=== PATIENT | male | born 1980 | race Caucasian/White ===

== ENCOUNTER 2020-05-25 21:07 | Inpatient (IN) ==
[2020-05-25 21:59] LABS: ABS Basophils 0.1 10^3/ul (0-0.2); ABS Eosinophils 0.2 10^3/ul (0-0.6); ABS Lymphocytes 2.5 10^3/ul (1.0-4.8); ABS Monocytes 0.3 10^3/ul (0-0.8); ABS Neutrophils 4.2 10^3/ul (1.5-7.7); Eosinophil % 2.2 %; Hematocrit 40 % (42-52); Hemoglobin 14.3 g/dL (14.0-18.0); Lymphocyte % 34.7 %; Mean Corpuscular HGB Conc 36 g/dL (31-36); Mean Corpuscular Hemoglobin 28 pg (27-31); Mean Corpuscular Volume 78 fL (80-94); Mean Platelet Volume 8.2 fL (7.4-10.4); Platelet Count 357 10^3/uL (150-450); Red Blood Count 5.11 10^6 /uL (4.18-5.48); Red Cell Distribution Width 13 % (10-15); White Blood Count 7.2 10^3/uL (3.5-10.8)
[2020-05-25 22:09] LABS: ALT 16 U/L (7-52); AST 16 U/L (13-39); Albumin 4.5 g/dL (3.2-5.2); Albumin/Globulin Ratio 1.8 (1-3); Alkaline Phosphatase 76 U/L (34-104); Anion Gap 11 mmol/L (2-11); Blood Urea Nitrogen 14 mg/dL (6-24); CO2 Carbon Dioxide 26 mmol/L (22-32); Calcium 9.1 mg/dL (8.6-10.3); Chloride 101 mmol/L (101-111); EGFR Non-African American 69.4 (>60); Globulin 2.5 g/dL (2-4); Glucose 391 mg/dL (70-100); Potassium 4.1 mmol/L (3.5-5.0); Sodium 138 mmol/L (135-145)
[2020-05-25 22:20] LABS: Acetaminophen < 15 mcg/mL; Alcohol, S 231 mg/dL (<10)
[2020-05-25 22:22] LABS: Salicylate < 2.50 mg/dL (<30)
[2020-05-25 22:43] LABS: TSH Ultra Thyroid Stim Horm 1.06 mcIU/mL (0.34-5.60)
[2020-05-25] MEDS ORDERED: Ondansetron ODT 4 mg TAB 4 MG TAB SL PRN (23:02)
[2020-05-26 00:18] LABS: Urine Appearance Cloudy; Urine Bilirubin Negative (Negative); Urine Blood Negative (Negative); Urine Color Yellow; Urine Glucose 3+(>=500 mg/dL) (Negative); Urine Ketones Trace (Negative); Urine Nitrite Negative (Negative); Urine Protein Negative (Negative); Urine Specific Gravity 1.033 (1.010-1.030); Urine Urobilinogen Negative (Negative)
[2020-05-26 00:47] LABS: Urine Benzodiazepine Screen None Detected (None Detect); Urine Cannabinoids Screen None Detected (None Detect); Urine Opiates Screen None Detected (None Detect)
[2020-05-26] MEDS ORDERED: Dextrose 50% Syringe 50 ml 25 GM/50 ML SYRINGE IV PUSH PRN (14:31)
[2020-05-26] MEDS: Polyethylene Glycol 3350 17 GM PACKET PO SCH (16:10)
[2020-05-26] MEDS: Nicotine GUM 4MG FRUIT FLAVOR PO PRN ×2 (16:12→20:09)
[2020-05-26] MEDS: Buprenorp/Nalox 8-2 MG SL TAB PO SCH (16:24)
[2020-05-26] MEDS ORDERED: Insulin NPH 100 units/ml SUBCUT ONE (18:40)
[2020-05-27] MEDS ORDERED: Influenza VAC *QUAD* 2020-21* 0.5 ML SYRINGE IM ONE (09:00)
[2020-05-27] MEDS: Insulin GLARGINE 100 un/ml 10 ml VIAL SUBCUT SCH (09:24)
[2020-05-27] MEDS: Buprenorp/Nalox 8-2 MG SL TAB PO SCH (09:39)
[2020-05-27] MEDS: Polyethylene Glycol 3350 17 GM PACKET PO SCH (12:03)
[2020-05-27] MEDS ORDERED: diPHENhydraMINE IV 50 MG/ML 1 ml VIAL (BENADRYL) IM ONE (16:37)
[2020-05-27] MEDS ORDERED: diPHENhydraMINE IV 50 MG/ML 1 ml VIAL (BENADRYL) ONE (16:38)
[2020-05-27] MEDS ORDERED: Lorazepam PYXIS KEY PRN (18:43)
[2020-05-27] MEDS ORDERED: LORazepam IM 0-6 mg for WAM protocol IM SCH (19:00)
[2020-05-27] MEDS ORDERED: LORazepam PO 0-6 for WAM protocol PO SCH (19:00)
[2020-05-28] MEDS: Polyethylene Glycol 3350 17 GM PACKET PO SCH (10:10)
[2020-05-28] MEDS: Buprenorp/Nalox 8-2 MG SL TAB PO SCH (10:11)
[2020-05-28] MEDS: Insulin GLARGINE 100 un/ml 10 ml VIAL SUBCUT SCH (10:12)
[2020-05-28] MEDS ORDERED: Insulin GLARGINE 100 un/ml 10 ml VIAL SUBCUT ONE (10:15)
[2020-05-28 12:59] VITALS: BP 150/88
[2020-05-29] MEDS ORDERED: Insulin GLARGINE 100 un/ml 10 ml VIAL SUBCUT SCH (09:00)
== END 2020-05-28 13:00 | disposition home or self-care (01) | DRG 773 ==
LOC: ED 21:07 → BSU 05-26 14:30
PROVIDERS: ADMIT Psychiatry & Neurology Psychiatry; ATTEND Psychiatry & Neurology Psychiatry